=== PATIENT | female | born 1990 | race Caucasian/White ===

== ENCOUNTER 2024-07-26 07:50 | Outpatient (CLI) | payer OTHER, SELFPAY | END 2024-07-26 07:51 | disposition home or self-care (01) | LOC: US 07:52 | PROVIDERS: Visit Provider Physician Assistant | DX: Z34.91 Encounter for supervision of normal pregnancy, unspecified, first trimester (principal); Z3A.08 8 weeks gestation of pregnancy | CPT/HCPCS: 76817; 83021; 86592; 86703; 86704; 86706; 86762; 86787; 86803; 86850; 86900; 86901; 87086; 87340; 87491; 87591; 87624; 88142 ==

== ENCOUNTER 2024-07-26 09:21 | Outpatient (CLI) | payer OTHER, SELFPAY ==
[2024-07-26 15:42] LABS: Chlamydia DNA Amplified* NOT DETECTED (No Detected); GC DNA Amplified* NOT DETECTED (No Detected)
[2024-07-27 18:43] LABS: HPV Source Cervix; HPV, High Risk by TMA Not Detected
== END 2024-07-26 09:22 | disposition home or self-care (01) ==
PROVIDERS: Visit Provider Physician Assistant
DX: Z34.91 Encounter for supervision of normal pregnancy, unspecified, first trimester (principal); Z3A.08 8 weeks gestation of pregnancy; Z12.4 Encounter for screening for malignant neoplasm of cervix
CPT/HCPCS: 83020; 83021; 85660; 86592; 86703; 86704; 86706; 86762; 86787; 86803; 86850; 86900; 86901; 87086; 87340; 87491; 87591; 87624; 87625; 88141; 88142